=== PATIENT | female | born 1940 | race Caucasian/White ===

== ENCOUNTER 2022-08-10 04:29 | Day surgery (SDC) | payer OTHER, BC ==
[2022-08-08 16:22] VITALS: BMI 23.3
[2022-08-10 08:19] VITALS: TEMP 98
[2022-08-10 08:44] VITALS: PULSE 68; RESP 18
[2022-08-10 09:24] VITALS: BP 114/75
== END 2022-08-10 09:10 | disposition home or self-care (01) ==
LOC: JASU-ENDO 04:29
PROVIDERS: ATTEND Internal Medicine Gastroenterology
PROC: 0DJD8ZZ Inspection of Lower Intestinal Tract, Via Natural or Artificial Opening Endoscopic (ICD-10-PCS; principal; 2022-08-10 08:00)
DX: Z12.11 Encounter for screening for malignant neoplasm of colon (principal); Z86.010 Personal history of colon polyps; Z80.0 Family history of malignant neoplasm of digestive organs

== ENCOUNTER 2023-04-13 14:29 | Emergency (ER) | payer OTHER, BC ==
[2023-04-13 14:46] VITALS: BP 170/85; PULSE 74; RESP 18; TEMP 98.1; BMI 23.8
[2023-04-13] MEDS ORDERED: ACETAMINOPHEN 500 MG TABLET (FP) PO ONE (15:13)
[2023-04-13] MEDS ORDERED: ACETAMINOPHEN 500 MG TABLET (FP) ONE (15:19)
== END 2023-04-13 16:55 | disposition home or self-care (01) ==
LOC: JER 14:29
DX: S00.81XA Abrasion of other part of head, initial encounter (principal); W01.198A Fall on same level from slipping, tripping and stumbling with subsequent striking against other object, initial encounter; Y92.094 Garage of other non-institutional residence as the place of occurrence of the external cause
CPT/HCPCS: 70450-TC; 72125-TC; 99284-25